=== PATIENT | female | born 1950 | race Caucasian/White ===

== ENCOUNTER 2016-12-27 00:34 | Emergency (ER) | payer OTHER ==
[~2016-12-27] VITALS: Ht 162.6 cm; Wt 54.4 kg
[2016-12-27] MEDS ORDERED: ALBUTEROL SULFATE 2.5 MG/3 ML NEBU NEB ONE (01:30)
[2016-12-27] MEDS ORDERED: ASPIRIN 81 MG TAB.CHEW PO ONE (01:30)
[2016-12-27] MEDS ORDERED: ALBUTEROL SULFATE 2.5 MG/3 ML NEBU ONE (01:50)
[2016-12-27] MEDS ORDERED: LEVOFLOXACIN 500 MG/D5W 100ML PIGGYBACK IV ONE (02:00)
[2016-12-27] MEDS ORDERED: methylPREDNISolone SOD SUCC 125 MG/2 ML VIAL IV ONE (02:00)
--- NOTE | 2016-12-27 02:00 | NUR ---
CALLED ESTHER CARCAMO MD DR MCCULLOUGH REQUESTED. WAITING FOR [facility] TO CALL BACK
[2016-12-27 02:08] LABS: BASOPHILS # (AUTO) 0.1 K/uL (0.0-8.0); BASOPHILS % (AUTO) 1.6 % (0.0-2.0); EOSINOPHILS # (AUTO) 0.5 K/uL (0.0-0.7); EOSINOPHILS % (AUTO) 9.4 % (0.0-7.0); HEMATOCRIT 35.1 % (37-47); HEMOGLOBIN 11.3 G/DL (12.0-16.0); LYMPHOCYTES # (AUTO) 1.5 K/UL (0.8-4.8); LYMPHOCYTES % (AUTO) 31.1 % (20.5-51.5); MEAN CORPUSCULAR HEMOGLOBIN 34.4 UUG (27.0-31.0); MEAN CORPUSCULAR HGB CONC 32 g/dL (32.0-37.0); MEAN CORPUSCULAR VOLUME 107.4 FL (81.0-99.0); MONOCYTES # (AUTO) 0.4 K/UL (0.1-1.30); MONOCYTES % (AUTO) 7.4 % (0.0-11.0); NEUTROPHILS # (AUTO) 2.4 K/UL (1.8-8.9); NEUTROPHILS % (AUTO) 50.5 % (38.5-71.5); PLATELET COUNT (AUTO) 167 K/UL (150-450); RED BLOOD CELL COUNT(AUTO) 3.27 MIL/UL (4.2-5.4); WHITE BLOOD COUNT (AUTO) 4.9 K/UL (4.0-11.2)
[2016-12-27 02:29] LABS: BILIRUBIN,DIRECT 0.1 mg/dL (0.0-0.2); BILIRUBIN,TOTAL 0.3 mg/dL (0.2-1.0); CREATININE 0.6 mg/dL (0.6-1.3); POTASSIUM 3.4 mmol/L (3.5-5.1); TOTAL PROTEIN, SERUM 7.3 g/dL (6.4-8.2)
[2016-12-27] MEDS ORDERED: ASPIRIN 81 MG TAB.CHEW ONE (02:52)
[2016-12-27 02:58] LABS: ABG BASE EXCESS 17.3 mmol/L; ABG HCO3 46.2 mmol/L; ABG PCO2 81.9 mmHg (35.0-45.0); ABG PH 7.369 (7.350-7.450); ABG PO2 108.3 mmHg (75.0-100.0); ABG SITE RIGHT RADIAL; ABG TOTAL HEMOGLOBIN 11.4 G/dL (12.0-16.0); COHb 1.1 % (0.5-1.5); MetHb 0.3 % (0.0-1.5); O2Hb 96.9 % (94.0-97.0); VENT MODE Nasal Cannula
[2016-12-27] MEDS ORDERED: methylPREDNISolone SOD SUCC 125 MG/2 ML VIAL ONE (05:27)
[2016-12-27] MEDS ORDERED: LEVOFLOXACIN 500 MG/D5W 100 ML ONE (05:27)
[2016-12-27 05:32] LABS: ABG BASE EXCESS 18.4 mmol/L; ABG HCO3 47.4 mmol/L; ABG PCO2 83.7 mmHg (35.0-45.0); ABG PH 7.371 (7.350-7.450); ABG PO2 113.4 mmHg (75.0-100.0); ABG SITE RIGHT RADIAL; ABG TOTAL HEMOGLOBIN 11.5 G/dL (12.0-16.0); COHb 1.1 % (0.5-1.5); MetHb 0.5 % (0.0-1.5); VENT MODE Nasal Cannula
--- NOTE | 2016-12-27 06:13 | NUR ---
[facility] CALL BACK FOR TRANSFER INFO. PATIENT WILL BE TRANSFERED TO [facility] ER [phone]. ACCEPTING MD IS DR TORRES
--- NOTE | 2016-12-27 06:46 | NUR ---
Patient Tranfers to outside Facility Physician: Kathy Location: [facility] [phone]
== END 2016-12-27 06:51 | disposition short-term general hospital (02) ==
LOC: ER 00:40
DX: J67.2 Bird fancier's lung (principal); J98.4 Other disorders of lung; B45.9 Cryptococcosis, unspecified; R06.00 Dyspnea, unspecified
CPT/HCPCS: 36600 ×2; 71010; 80048; 80076; 83605; 83880; 84484; 85025; 85379; 85730; 87040 ×2; 93005 ×2; 94640; 96365; 96375; 99285; A4663; J1956; J2930; 36415; 70030-TC